=== PATIENT | male | born 1930 | race Caucasian/White ===

== ENCOUNTER → 2017-01-25 | Outpatient (CLI) | payer MEDICARE ==
[~2017-01-25] MED LIST: IOHEXOL 350 MG/ML 150 ML (OMNIPAQUE 350) VIAL IV ONE; LEVOTHYROXINE 75 MCG PO; NS 100 ML (IVPB) BAG IV ONE; metoprolol ER PO
--- NOTE | 2017-01-25 08:49 | Diagnostic Imaging Report ---
PROCEDURE: CT angiography of the chest with contrast. TECHNIQUE: Multiple contiguous axial images were obtained through the chest after uneventful bolus administration of intravenous contrast. Reconstructed CTA MIP acquisitions were also performed. INDICATION: Followup abdominal aortic aneurysm. FINDINGS: There is a 4.4 cm ascending aortic aneurysm, similar in caliber to the 10/17/2012 exam. The aortic root is measuring 4.1 cm, minimally ectatic. There is slight ectasia in the aortic arch and the descending aorta. The pulmonary arteries are well opacified with no filling defects to suggest an aneurysm. There is a mildly enlarged lymph node in the right hilum measuring 1.3 cm compared to the 1 cm lymph node seen in a similar location on the 2013 exam. Pretracheal small lymph nodes are noted measuring up to 1.2 cm with some calcification, suggestive of a prior granulomatous process. No axillary lymphadenopathy. There is a previous sternotomy evident with healing and sternotomy wires still present. The heart size is normal. No pericardial or pleural effusion. Upper lobe predominant emphysema is seen with no significant consolidation, mass, or suspicious pulmonary nodule. Sections in the upper abdomen demonstrate bilateral large simple appearing renal cysts. Only the upper aspect of the cysts are visualized and the renal parenchyma is not within the [id number]. Degenerative changes in the thoracic spine are noted. IMPRESSION: Stable 4.4 cm ascending aortic aneurysm. Emphysema. Dictated by: Dictated on workstation # [id number]
== END ==
LOC: RAD 07:40
PROVIDERS: ATTEND Internal Medicine Cardiovascular Disease
DX: I71.2 Thoracic aortic aneurysm, without rupture (principal); J43.9 Emphysema, unspecified
CPT/HCPCS: 71275